=== PATIENT | female | born 1950 | race Caucasian/White ===

== ENCOUNTER 2021-05-09 06:50 | Day surgery (SDC) | payer OTHER ==
[~2021-05-09] VITALS: Ht 177.8 cm; Wt 100.0 kg
[~2021-05-09 06:50] MED LIST: ALBU4 PO; ALBU90OI61 INH; ATOR20; Augmentin 875-1 EACH PO; CYCL10; ESOM20; FLUSAL2505 INH; FLUT.05NI; FLUT1DIS2 INH; FLUT1DIS5 INH; MONT5TCH PO; MULVITA; OMEP20ER PO; PREG150 PO; PROM25 PO; PROM25S; PROM25S PR; PSEU120ER PO; Prednisone20 MG PO; SERT100; SERT25; SUMA25; Ultram50 MG PO; VENL75
--- NOTE | 2021-05-09 07:09 | NUR ---
05/09/21 0709 Kristy Hunter SCOPE BEING USED [id number] SERIAL #[id number]
--- NOTE | 2021-05-09 07:25 | NUR ---
Ambulatory in Day Surgery Patient states colon prep results clear. History, Chart, Medications and Allergies reviewed before start of procedure. Pre-Op teaching done. Pt verbalizes understanding. Patient States Post-Procedure ride home has been arranged.
--- NOTE | 2021-05-09 09:20 | NUR ---
Patient up to Ambulate independently. Gait steady. Discharge instructions reviewed with patient. Patient verbalizes understanding. Copy given to patient to take home. Patient States Post-Procedure ride home has been arranged. Discharged via wheelchair to private car for ride home.
== END 2021-05-09 09:20 | disposition home or self-care (01) ==
LOC: ORSCMMR 06:50 → ORD 08:00 → ORSCSDS 08:00 → ORSCMMR 08:00
PROVIDERS: Internal Medicine Gastroenterology
PROC: 0DBP8ZX Excision of Rectum, Via Natural or Artificial Opening Endoscopic, Diagnostic (ICD-10-PCS; principal; 2021-05-09 08:00)
PROC: 0DBK8ZX Excision of Ascending Colon, Via Natural or Artificial Opening Endoscopic, Diagnostic (ICD-10-PCS; principal; 2021-05-09 08:00)
DX: Z12.11 Encounter for screening for malignant neoplasm of colon (principal); D12.2 Benign neoplasm of ascending colon; K62.1 Rectal polyp; K57.30 Diverticulosis of large intestine without perforation or abscess without bleeding; Z86.010 Personal history of colon polyps
CPT/HCPCS: 88305; J2704; J7120

== ENCOUNTER → 2023-06-02 | Outpatient (CLI) | payer OTHER ==
[~2023-06-02] MED LIST changes: +ASPI81CH PO; +METO25 PO
== END | disposition home or self-care (01) ==
LOC: LAB SHORT 16:10 → LAB 16:10
DX: R82.90 Unspecified abnormal findings in urine (principal)
CPT/HCPCS: 87086

== ENCOUNTER → 2023-06-07 | Outpatient (CLI) | payer OTHER ==
[2023-06-07 13:48] LABS: BASOPHILS ABSOLUTE AUTO 0.03 K/mm3 (0.00-0.23); BASOPHILS PERCENT AUTO 1 % (0-2); EOSINOPHILS ABSOLUTE AUTO 0.07 K/mm3 (0.00-0.68); EOSINOPHILS PERCENT AUTO 2 % (0-6); Hematocrit 40.8 % (33.0-51.0); Hemoglobin 13.7 g/dL (11.5-16.0); IMMATURE GRAN ABSOLUTE AUTO 0.01 K/mm3 (0.00-0.10); IMMATURE GRAN PERCENT AUTO 0 % (0-1); LYMPHOCYTES ABSOLUTE AUTO 0.98 K/mm3 (0.84-5.20); LYMPHOCYTES PERCENT AUTO 23 % (21-46); MONOCYTES ABSOLUTE AUTO 0.34 K/mm3 (0.16-1.47); MONOCYTES PERCENT AUTO 8 % (4-13); Mean Corpuscular HGB 29.8 pg (26.0-34.0); Mean Corpuscular HGB Conc 33.6 g/dL (31.5-36.5); Mean Corpuscular Volume 89 fL (80-100); Mean Platelet Volume 10.1 fL (9.1-12.4); NEUTROPHILS ABSOLUTE AUTO 2.91 K/mm3 (1.96-9.15); NEUTROPHILS PERCENT AUTO 67 % (41-73); Platelet Count 223 K/mm3 (150-400); RDW Coefficient Variation 13.4 % (11.7-14.2); RDW Standard Deviation 43.4 fL (35.1-46.3); Red Blood Cell Count 4.59 M/mm3 (3.80-5.20); White Blood Cell Count 4.34 K/mm3 (4.00-11.30)
[2023-06-07 13:58] LABS: Albumin, Blood 3.6 g/dL (3.4-5.0); Albumin/Globulin Ratio 1.1 (0.8-1.8); Bilirubin, Total 0.7 mg/dL (0.1-1.0); Bun/Creatinine Ratio 9.1 (12.0-20.0); Calcium, Blood 9.3 mg/dL (8.5-10.1); Creatinine, Blood 0.77 mg/dL (0.40-1.00); Globulin, Blood 3.2 g/dL (2.2-4.0); Potassium, Blood 3.8 mmol/L (3.5-5.5); Total Protein, Blood 6.8 g/dL (6.4-8.2)
== END | disposition home or self-care (01) ==
LOC: LAB 13:41 → LAB SHORT 13:41
PROVIDERS: Physician Assistant
DX: K52.9 Noninfective gastroenteritis and colitis, unspecified (principal)
CPT/HCPCS: 80053; 85025

== ENCOUNTER → 2023-06-12 | Outpatient (CLI) | payer OTHER ==
[~2023-06-12] MED LIST changes: +DRAMAMINE25 M1; +MELATONIN10 M2 PO; +Metoprolol Succ25 MG; +ONDA4 PO; +WARF5 PO
[2023-06-12 15:12] LABS: Adenovirus F 40/41 Not Detected (NOT DETECT); Astrovirus Not Detected (NOT DETECT); Campylobacter Sp Not Detected (NOT DETECT); Cryptosporidium Not Detected (NOT DETECT); Cyclospora Cayetanensis Not Detected (NOT DETECT); E. Coli O157 Not Detected (NOT DETECT); Entamoeba Histolytica Not Detected (NOT DETECT); Enteroaggregative E. coli-EAEC Not Detected (NOT DETECT); Enteropathogenic E. coli-EPEC Not Detected (NOT DETECT); Enterotoxigenic E. coli-ETEC Not Detected (NOT DETECT); Giardia Lamblia Not Detected (NOT DETECT); Norovirus GI/GII Not Detected (NOT DETECT); Plesiomonas Shigelloides Not Detected (NOT DETECT); Rotavirus A Not Detected (NOT DETECT); Salmonella Sp Not Detected (NOT DETECT); Sapovirus Not Detected (NOT DETECT); Shiga Toxin-prod E. coli-STEC Not Detected (NOT DETECT); Shigella/Enteroin E. coli-EIEC Not Detected (NOT DETECT); Vibrio Cholerae Not Detected (NOT DETECT); Vibrio Sp Not Detected (NOT DETECT); Yersinia Enterocolitica Not Detected (NOT DETECT)
== END ==
LOC: LAB 10:40 → LAB SHORT 10:40
PROVIDERS: Physician Assistant
DX: K52.9 Noninfective gastroenteritis and colitis, unspecified (principal)
CPT/HCPCS: 87507

== ENCOUNTER → 2023-06-21 | Outpatient (CLI) | payer OTHER ==
[~2023-06-21] MED LIST changes: -DRAMAMINE25 M1; -MELATONIN10 M2 PO; -Metoprolol Succ25 MG; -ONDA4 PO; -WARF5 PO
[2023-06-21 16:59] LABS: BASOPHILS ABSOLUTE AUTO 0.04 K/mm3 (0.00-0.23); BASOPHILS PERCENT AUTO 1 % (0-2); EOSINOPHILS ABSOLUTE AUTO 0.08 K/mm3 (0.00-0.68); EOSINOPHILS PERCENT AUTO 2 % (0-6); Hematocrit 45.5 % (33.0-51.0); Hemoglobin 14.8 g/dL (11.5-16.0); IMMATURE GRAN ABSOLUTE AUTO 0.01 K/mm3 (0.00-0.10); IMMATURE GRAN PERCENT AUTO 0 % (0-1); LYMPHOCYTES ABSOLUTE AUTO 1.36 K/mm3 (0.84-5.20); LYMPHOCYTES PERCENT AUTO 29 % (21-46); MONOCYTES ABSOLUTE AUTO 0.34 K/mm3 (0.16-1.47); MONOCYTES PERCENT AUTO 7 % (4-13); Mean Corpuscular HGB 29.5 pg (26.0-34.0); Mean Corpuscular HGB Conc 32.5 g/dL (31.5-36.5); Mean Corpuscular Volume 91 fL (80-100); Mean Platelet Volume 10.4 fL (9.1-12.4); NEUTROPHILS ABSOLUTE AUTO 2.87 K/mm3 (1.96-9.15); NEUTROPHILS PERCENT AUTO 61 % (41-73); Platelet Count 274 K/mm3 (150-400); RDW Coefficient Variation 13.5 % (11.7-14.2); RDW Standard Deviation 44.8 fL (35.1-46.3); Red Blood Cell Count 5.02 M/mm3 (3.80-5.20)
[2023-06-21 17:06] LABS: Albumin, Blood 3.8 g/dL (3.4-5.0); Albumin/Globulin Ratio 1.1 (0.8-1.8); Bilirubin, Total 0.5 mg/dL (0.1-1.0); Calcium, Blood 10.4 mg/dL (8.5-10.1); Creatinine, Blood 0.89 mg/dL (0.40-1.00); Globulin, Blood 3.6 g/dL (2.2-4.0); Potassium, Blood 4.6 mmol/L (3.5-5.5); Total Protein, Blood 7.4 g/dL (6.4-8.2)
== END ==
LOC: LAB SHORT 16:05 → LAB 16:05
PROVIDERS: Physician Assistant
DX: I48.21 Permanent atrial fibrillation (principal); R11.0 Nausea
CPT/HCPCS: 80053; 82150; 83690; 85025

== ENCOUNTER → 2023-07-03 | Outpatient (CLI) | payer OTHER ==
[2023-07-05 18:10] LABS: PANCREATIC ELASTASE,FECAL 78 ug/g (>=100)
== END ==
LOC: LAB SHORT 09:45 → LAB 09:45
PROVIDERS: Physician Assistant Medical
DX: R14.0 Abdominal distension (gaseous) (principal)
CPT/HCPCS: 82653

== ENCOUNTER 2023-07-16 12:40 | Day surgery (SDC) | payer OTHER ==
[~2023-07-16] VITALS: Ht 177.8 cm; Wt 89.3 kg
[2023-07-16] MEDS ORDERED: Metoprolol Succ25 MG (13:17)
[2023-07-16] MEDS ORDERED: ONDA4 PO (13:18)
[2023-07-16] MEDS ORDERED: PROM25 PO (13:18)
[2023-07-16] MEDS ORDERED: DRAMAMINE25 M1 (13:18)
[2023-07-16] MEDS ORDERED: MELATONIN10 M2 PO (13:19)
[2023-07-16] MEDS ORDERED: WARF5 PO (13:28)
[2023-07-16 14:44] VITALS: BP 105/78
== END 2023-07-16 14:45 | disposition home or self-care (01) ==
LOC: ORSCSDS 12:40
PROVIDERS: Internal Medicine Gastroenterology
PROC: 0DB98ZX Excision of Duodenum, Via Natural or Artificial Opening Endoscopic, Diagnostic (ICD-10-PCS; principal; 2023-07-16 14:00)
PROC: 0DB68ZX Excision of Stomach, Via Natural or Artificial Opening Endoscopic, Diagnostic (ICD-10-PCS; principal; 2023-07-16 14:00)
DX: R63.4 Abnormal weight loss (principal); K31.7 Polyp of stomach and duodenum; K29.70 Gastritis, unspecified, without bleeding; R14.0 Abdominal distension (gaseous); K21.9 Gastro-esophageal reflux disease without esophagitis; K59.00 Constipation, unspecified; E78.5 Hyperlipidemia, unspecified; I48.91 Unspecified atrial fibrillation; I10 Essential (primary) hypertension; F32.A Depression, unspecified; J45.909 Unspecified asthma, uncomplicated; Z79.01 Long term (current) use of anticoagulants; Z79.899 Other long term (current) drug therapy
CPT/HCPCS: 88305; 88342; J2704; J7120

== ENCOUNTER 2024-07-13 06:37 | Day surgery (SDC) | payer OTHER ==
[~2024-07-13] VITALS: Ht 177.8 cm; Wt 94.9 kg
[~2024-07-13 06:37] MED LIST changes: +CREON DR 12,001 EACH PO; +DRAMAMINE25 M1; +GABA300 PO; +HYDR1TAB94 PO; +MELATONIN10 M2 PO; +Metoprolol Succ25 MG; +ONDA4 PO; +Robaxin750 MG PO; +WARF5 PO
[2024-07-13] MEDS ORDERED: propofoL 50 ML IV ONE (07:21)
[2024-07-13] MEDS ORDERED: Lactated Ringer's 1,000 ML IV ONE ×2 (07:21→07:43)
[2024-07-13 09:14] VITALS: BP 104/74
== END 2024-07-13 09:03 | disposition home or self-care (01) ==
LOC: ORSCSDS 06:37
PROVIDERS: Internal Medicine Gastroenterology
PROC: 0DBL8ZX Excision of Transverse Colon, Via Natural or Artificial Opening Endoscopic, Diagnostic (ICD-10-PCS; principal; 2024-07-13 08:00)
DX: Z12.11 Encounter for screening for malignant neoplasm of colon (principal); Z86.0100 Personal history of colon polyps, unspecified; K63.89 Other specified diseases of intestine; K63.5 Polyp of colon; K59.00 Constipation, unspecified; I48.91 Unspecified atrial fibrillation; Z79.01 Long term (current) use of anticoagulants; I10 Essential (primary) hypertension; K21.9 Gastro-esophageal reflux disease without esophagitis; E78.5 Hyperlipidemia, unspecified; Z79.899 Other long term (current) drug therapy
CPT/HCPCS: 88305; J2704; J7120

== ENCOUNTER → 2025-02-28 | Outpatient (CLI) | payer OTHER ==
[~2025-02-28] MED LIST changes: +Amoxicillin500 MG PO; +CLAR500 PO; +FAMO20 PO
[2025-02-28 11:16] LABS: BASOPHILS ABSOLUTE AUTO 0.05 K/mm3 (0.00-0.23); BASOPHILS PERCENT AUTO 1 % (0-2); EOSINOPHILS ABSOLUTE AUTO 0.04 K/mm3 (0.00-0.68); EOSINOPHILS PERCENT AUTO 1 % (0-6); Hematocrit 42.6 % (33.0-51.0); Hemoglobin 14.1 g/dL (11.5-16.0); IMMATURE GRAN ABSOLUTE AUTO 0.00 K/mm3 (0.00-0.10); IMMATURE GRAN PERCENT AUTO 0 % (0-1); LYMPHOCYTES ABSOLUTE AUTO 1.33 K/mm3 (0.84-5.20); LYMPHOCYTES PERCENT AUTO 35 % (21-46); MONOCYTES ABSOLUTE AUTO 0.34 K/mm3 (0.16-1.47); MONOCYTES PERCENT AUTO 9 % (4-13); Mean Corpuscular HGB Conc 33.1 g/dL (31.5-36.5); Mean Corpuscular Volume 90 fL (80-100); NEUTROPHILS ABSOLUTE AUTO 2.05 K/mm3 (1.96-9.15); NEUTROPHILS PERCENT AUTO 54 % (41-73); NRBC ABSOLUTE 0.00 K/mm3 (0.00-0.02); NRBC Auto 0.0 /100 WBC (0.0-0.2); Platelet Count 245 K/mm3 (150-400); RDW Coefficient Variation 13.5 % (11.7-14.2); RDW Standard Deviation 44.3 fL (35.1-46.3)
[2025-02-28 11:29] LABS: Alanine Aminotransfer (ALT/SGP 17.0 U/L (12-78); Albumin, Blood 3.6 g/dL (3.4-5.0); Albumin/Globulin Ratio 1.0 (0.8-1.8); Anion Gap 13.0 mmol/L (3-11); Aspartate Aminotrans (AST/SGOT 17.0 U/L (12-37); Bilirubin, Total 0.6 mg/dL (0.1-1.0); Blood Urea Nitrogen 4.0 mg/dL (8-24); CO2, Blood 28.0 mmol/L (21-32); Calcium, Blood 9.2 mg/dL (8.5-10.1); Chloride, Blood 102.0 mmol/L (98-108); Creatinine, Blood 0.82 mg/dL (0.40-1.00); Globulin, Blood 3.5 g/dL (2.2-4.0); Glucose, Blood 109.0 mg/dL (70-99); Potassium, Blood 4.1 mmol/L (3.5-5.5); Sodium, Blood 139.0 mmol/L (136-145); Total Protein, Blood 7.1 g/dL (6.4-8.2)
== END ==
LOC: LAB SHORT 11:12 → LAB 11:12
PROVIDERS: Physician Assistant
DX: R10.13 Epigastric pain (principal)
CPT/HCPCS: 80053; 83690; 84484; 85025

== ENCOUNTER 2025-03-02 08:09 | Emergency (ER) | payer OTHER ==
[~2025-03-02] VITALS: Ht 177.8 cm; Wt 95.2 kg
[~2025-03-02 08:09] MED LIST changes: -Amoxicillin500 MG PO; -CLAR500 PO
[2025-03-02] MEDS ORDERED: Atropine/Scopalam/Hyoscam/PB 5 ML UDC PO ONE (09:00)
[2025-03-02] MEDS ORDERED: Lidocaine 2% Viscous Soln 15 ML UDC PO ONE (09:00)
[2025-03-02] MEDS ORDERED: NS 1,000 ML IV SCH (09:00)
[2025-03-02 09:32] LABS: BASOPHILS ABSOLUTE AUTO 0.04 K/mm3 (0.00-0.23); BASOPHILS PERCENT AUTO 1 % (0-2); EOSINOPHILS ABSOLUTE AUTO 0.06 K/mm3 (0.00-0.68); EOSINOPHILS PERCENT AUTO 1 % (0-6); Hematocrit 44.2 % (33.0-51.0); Hemoglobin 14.6 g/dL (11.5-16.0); IMMATURE GRAN ABSOLUTE AUTO 0.01 K/mm3 (0.00-0.10); IMMATURE GRAN PERCENT AUTO 0 % (0-1); LYMPHOCYTES ABSOLUTE AUTO 1.25 K/mm3 (0.84-5.20); LYMPHOCYTES PERCENT AUTO 29 % (21-46); MONOCYTES ABSOLUTE AUTO 0.41 K/mm3 (0.16-1.47); MONOCYTES PERCENT AUTO 10 % (4-13); Mean Corpuscular HGB Conc 33.0 g/dL (31.5-36.5); Mean Corpuscular Volume 89 fL (80-100); NEUTROPHILS ABSOLUTE AUTO 2.49 K/mm3 (1.96-9.15); NEUTROPHILS PERCENT AUTO 59 % (41-73); NRBC ABSOLUTE 0.00 K/mm3 (0.00-0.02); NRBC Auto 0.0 /100 WBC (0.0-0.2); Platelet Count 265 K/mm3 (150-400); RDW Coefficient Variation 13.3 % (11.7-14.2); RDW Standard Deviation 43.7 fL (35.1-46.3)
[2025-03-02 09:48] LABS: Source, Urine Clean Catch
[2025-03-02 09:50] LABS: Alanine Aminotransfer (ALT/SGP 16.0 U/L (12-78); Albumin, Blood 3.7 g/dL (3.4-5.0); Albumin/Globulin Ratio 1.0 (0.8-1.8); Anion Gap 9.0 mmol/L (3-11); Aspartate Aminotrans (AST/SGOT 17.0 U/L (12-37); Bilirubin, Total 0.5 mg/dL (0.1-1.0); Blood Urea Nitrogen 4.0 mg/dL (8-24); CO2, Blood 27.0 mmol/L (21-32); Calcium, Blood 9.1 mg/dL (8.5-10.1); Chloride, Blood 107.0 mmol/L (98-108); Creatinine, Blood 0.76 mg/dL (0.40-1.00); Globulin, Blood 3.6 g/dL (2.2-4.0); Glucose, Blood 100.0 mg/dL (70-99); Potassium, Blood 3.9 mmol/L (3.5-5.5); Sodium, Blood 139.0 mmol/L (136-145); Total Protein, Blood 7.3 g/dL (6.4-8.2)
[2025-03-02 09:51] LABS: Bilirubin, Urine Neg (Neg); Color, Urine Yellow (P-Yellow); Glucose Qualitative, Urine Neg (Neg); Ketones, Urine Neg (Neg); Leukocyte Esterase, Urine 2+ (Neg); Protein, Urine Neg (Neg); Specific Gravity, Urine 1.015 (1.003-1.022); Urobilinogen, Urine NORM (Normal)
[2025-03-02 09:58] LABS: Red Blood Cells, Urine Not Seen /hpf (0-2); White Blood Cells, Urine 0-2 /hpf (0-5)
[2025-03-02 10:41] VITALS: BP 116/79
[2025-03-02] MEDS ORDERED: Ondansetron HCl 2 MG / ML 2ML Vial IV ONE (11:20)
[2025-03-02] MEDS ORDERED: PROM25 PO (13:13)
[2025-03-02] MEDS ORDERED: CLAR500 PO (13:13)
[2025-03-02] MEDS ORDERED: Amoxicillin500 MG PO (13:13)
== END 2025-03-02 13:30 | disposition home or self-care (01) ==
LOC: ER 08:09
PROVIDERS: Physician Assistant
DX: R10.13 Epigastric pain (principal); J44.9 Chronic obstructive pulmonary disease, unspecified; K21.9 Gastro-esophageal reflux disease without esophagitis; E78.5 Hyperlipidemia, unspecified; Z86.19 Personal history of other infectious and parasitic diseases; Z79.01 Long term (current) use of anticoagulants; Z79.899 Other long term (current) drug therapy; Z59.89 Other problems related to housing and economic circumstances
CPT/HCPCS: 74177; 76705; 80053; 81001; 83690; 85025; 87086; 96361; 96374-59; 99284-25; A9270; J2405; J7030; Q9967

== ENCOUNTER 2025-03-30 12:53 | Day surgery (SDC) | payer OTHER ==
[~2025-03-30] VITALS: Ht 177.8 cm; Wt 93.7 kg
[~2025-03-30 12:53] MED LIST changes: +Amoxicillin500 MG PO; +CLAR500 PO; +XARELTO20 MG PO
[2025-03-30] MEDS ORDERED: PREGABALIN150 MG (13:27)
[2025-03-30] MEDS ORDERED: CREON DR 36,001 EACH (13:29)
--- NOTE | 2025-03-30 14:06 | NUR ---
03/30/25 1406 VICKEY ZAMBRANO MD NOTIFIED FACE TO FACE OF EKG WITH AFIB RVR IN FEBRUARY AND MONIOR RATES OF 110-130, WITH MANUAL PULSE COUNTS OF 60-100, BY THIS RN
[2025-03-30 15:12] VITALS: BP 123/61
== END 2025-03-30 14:58 | disposition home or self-care (01) ==
LOC: ORSCSDS 12:53
PROVIDERS: Specialist
PROC: 0DB68ZX Excision of Stomach, Via Natural or Artificial Opening Endoscopic, Diagnostic (ICD-10-PCS; principal; 2025-03-30 14:15)
PROC: 0DB98ZX Excision of Duodenum, Via Natural or Artificial Opening Endoscopic, Diagnostic (ICD-10-PCS; principal; 2025-03-30 14:15)
DX: R10.13 Epigastric pain (principal); K44.9 Diaphragmatic hernia without obstruction or gangrene; R11.0 Nausea; E78.5 Hyperlipidemia, unspecified; I48.91 Unspecified atrial fibrillation; J45.909 Unspecified asthma, uncomplicated; F32.A Depression, unspecified; I10 Essential (primary) hypertension; Z79.01 Long term (current) use of anticoagulants; Z79.899 Other long term (current) drug therapy
CPT/HCPCS: 88305; 88342; J2003; J2704; J7120

== ENCOUNTER 2025-04-12 16:42 | Emergency (ER) | payer OTHER ==
[~2025-04-12] VITALS: Ht 177.8 cm; Wt 94.3 kg
[~2025-04-12 16:42] MED LIST changes: +CREON DR 36,001 EACH; +PREGABALIN150 MG
[2025-04-12 19:00] VITALS: BP 133/90
== END 2025-04-12 19:03 | disposition home or self-care (01) ==
LOC: ER 16:42
DX: S00.03XA Contusion of scalp, initial encounter (principal); M25.551 Pain in right hip; J44.9 Chronic obstructive pulmonary disease, unspecified; K21.9 Gastro-esophageal reflux disease without esophagitis; E78.5 Hyperlipidemia, unspecified; Z88.1 Allergy status to other antibiotic agents; Z88.5 Allergy status to narcotic agent; Z88.8 Allergy status to other drugs, medicaments and biological substances; Z79.01 Long term (current) use of anticoagulants; Z79.899 Other long term (current) drug therapy; W10.9XXA Fall (on) (from) unspecified stairs and steps, initial encounter
CPT/HCPCS: 70450; 73502

== ENCOUNTER 2025-07-03 05:58 | Observation (INO) | payer OTHER ==
[~2025-07-03] VITALS: Ht 177.8 cm; Wt 97.0 kg
[2025-07-03] MEDS ORDERED: Ondansetron HCl 2 MG / ML 2ML Vial IV ONE ×2 (07:20→09:15)
[2025-07-03] MEDS ORDERED: HYDROmorphone HCl/Pf 1MG SYR IV ONE (07:35)
[2025-07-03 07:51] LABS: Source, Urine Clean Catch
[2025-07-03 08:02] LABS: Bilirubin, Urine Neg (Neg); Glucose Qualitative, Urine Neg (Neg); Ketones, Urine Neg (Neg); Leukocyte Esterase, Urine Neg (Neg); Protein, Urine Neg (Neg); Specific Gravity, Urine 1.005 (1.003-1.022); Urobilinogen, Urine NORM (Normal)
[2025-07-03] MEDS ORDERED: PREG300 PO (08:04)
[2025-07-03 08:14] LABS: Color, Urine Pale Yellow (P-Yellow)
[2025-07-03 08:23] LABS: BASOPHILS ABSOLUTE AUTO 0.04 K/mm3 (0.00-0.23); BASOPHILS PERCENT AUTO 1 % (0-2); EOSINOPHILS ABSOLUTE AUTO 0.07 K/mm3 (0.00-0.68); EOSINOPHILS PERCENT AUTO 1 % (0-6); Hematocrit 42.2 % (33.0-51.0); Hemoglobin 14.0 g/dL (11.5-16.0); IMMATURE GRAN ABSOLUTE AUTO 0.01 K/mm3 (0.00-0.10); IMMATURE GRAN PERCENT AUTO 0 % (0-1); LYMPHOCYTES ABSOLUTE AUTO 1.04 K/mm3 (0.84-5.20); LYMPHOCYTES PERCENT AUTO 17 % (21-46); MONOCYTES ABSOLUTE AUTO 0.38 K/mm3 (0.16-1.47); MONOCYTES PERCENT AUTO 6 % (4-13); Mean Corpuscular HGB Conc 33.2 g/dL (31.5-36.5); Mean Corpuscular Volume 91 fL (80-100); NEUTROPHILS ABSOLUTE AUTO 4.53 K/mm3 (1.96-9.15); NEUTROPHILS PERCENT AUTO 75 % (41-73); NRBC ABSOLUTE 0.00 K/mm3 (0.00-0.02); NRBC Auto 0.0 /100 WBC (0.0-0.2); Platelet Count 226 K/mm3 (150-400); RDW Coefficient Variation 13.1 % (11.7-14.2); RDW Standard Deviation 43.5 fL (35.1-46.3)
[2025-07-03 08:39] LABS: Alanine Aminotransfer (ALT/SGP 16.0 U/L (12-78); Albumin, Blood 3.5 g/dL (3.4-5.0); Albumin/Globulin Ratio 1.0 (0.8-1.8); Anion Gap 10.0 mmol/L (3-11); Aspartate Aminotrans (AST/SGOT 17.0 U/L (12-37); Bilirubin, Total 0.6 mg/dL (0.1-1.0); Blood Urea Nitrogen 9.0 mg/dL (8-24); CO2, Blood 26.0 mmol/L (21-32); Calcium, Blood 9.3 mg/dL (8.5-10.1); Chloride, Blood 105.0 mmol/L (98-108); Creatinine, Blood 0.66 mg/dL (0.40-1.00); Globulin, Blood 3.6 g/dL (2.2-4.0); Glucose, Blood 115.0 mg/dL (70-99); Potassium, Blood 3.7 mmol/L (3.5-5.5); Sodium, Blood 137.0 mmol/L (136-145); Total Protein, Blood 7.1 g/dL (6.4-8.2)
[2025-07-03 08:40] LABS: Prothrombin Time Results 22.2 Sec (9.7-11.5)
[2025-07-03] MEDS ORDERED: FLU VACC TS2025(65UP)/MF59C/PF 45 MCG/0.5 ML SYRINGE IM SCH (10:40)
[2025-07-03 11:49] VITALS: BP 110/91
[2025-07-03] MEDS ORDERED: Ondansetron 4 MG SoluTab MM PRN (13:15)
[2025-07-03] MEDS ORDERED: Amylase/Lipase/Protease DR Cap 12,000 PO PRN (13:35)
[2025-07-03] MEDS ORDERED: Polyethylene Glycol 3350 17 gm PO PRN (14:35)
[2025-07-03] MEDS ORDERED: Amylase/Lipase/Protease DR Cap 12,000 PO SCH (17:30)
--- NOTE | 2025-07-03 18:11 | NUR ---
ADMISSION/SHIFT SUMMARY: PATIENT ARRIVES TO ROOM AT 1144 VIA GURNEY FROM ER FOR DX'S OF INTRACTABLE PAIN SECONDARY TO SACRAL FX. PATIENT TRANSFERRED TO BED c 1 ASSIST. PATIENT ADMISSION, MEDRIC AND ASSESSMENT COMPLETED. PATIENT WAS SEEN BY PT TODAY FOR EVAL AND PARTICIPATED, RECOMMENDED HH. PATIENT MEDICATED FOR R SIDE LOWER BACK PAIN PER EMAR c GOOD EFFECT. PATIENT CONTINENT OF BLADDER AND USES BSC c SBA/FWW. VITAL SIGNS REVIEWED. PATIENT A/OX4, CALM, PLEASANT, COOPERATIVE c CARE, CALLS APPROPRIATELY AND MAKE NEEDS KNOWN. BED IN LOWEST POSITION. CALL LIGHT IN REACH.
[2025-07-03 21:14] VITALS: BP 102/55
[2025-07-04 03:47] VITALS: BP 89/51
--- NOTE | 2025-07-04 05:51 | NUR ---
Shift Summary- - Events: The patient rested comfortably. BP was mildly low, potentially due to an increased pain medication dosage administered to facilitate sleep. - Orientation: A/Ox4. - Ambulation: Used FWW with a gait belt (uses a cane at baseline). - Medication: Taken whole with water. - Toileting: Continent x2.
[2025-07-04 05:56] VITALS: BP 104/53
[2025-07-04 06:21] LABS: Prothrombin Time Results 20.3 Sec (9.7-11.5)
[2025-07-04] MEDS ORDERED: Enoxaparin 40 MG/0.4 ML SYR SC SCH (09:00)
[2025-07-04] MEDS ORDERED: ACET500 PO (11:50)
[2025-07-04] MEDS ORDERED: ONDA4ODT MM (11:51)
[2025-07-04] MEDS ORDERED: Cyclobenzaprine5 MG PO (11:51)
[2025-07-04] MEDS ORDERED: OXAYDO5 M1 PO (11:53)
[2025-07-04] MEDS ORDERED: MIRALAX17 GM PO (11:54)
[2025-07-04 14:53] VITALS: BP 106/63
--- NOTE | 2025-07-04 16:20 | NUR ---
SHIFT/DC SUMMARY: PT ALERT AND ORIENTED X4, PAIN MANAGEMENT GOAL MET- OXYCODONE 10MG AND TYLENOL 1000 MG GIVEN PRIOR TO DC HOME. PT HAS BEEN ABLE TO EXIT BED AND AMBULATE TO RESTROOM-STANDBY ASSIST WITH FWW. HARD SCRIPT FOR OXYCODONE GIVEN TO PATIENT AND ALL OTHER PRESCRIPTIONS FAXED TO [facility]. DC INSTRUCTIONS REVIEWED WITH PATIENT AND DAUGHTER PER EVANS ALBRIGHT. 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 ALL BELONGINGS WITH PATIENT.
--- NOTE | 2025-07-05 16:29 | NUR ---
CALLED PT FOR HOME MEDICATION TO BE PICKED UP. [facility] HOME MEDICATION. PT STATES WILL SEND DAUGHTER TO [facility] MEDICATION SOMETIME TODAY OR [facility].
== END 2025-07-04 16:30 | disposition home health service (06) ==
LOC: ER 05:58 → MEDS 05:59 → ER 11:38 → MEDS 11:58
PROVIDERS: Emergency Medicine; ADMIT Family Medicine
DX: M54.40 Lumbago with sciatica, unspecified side (principal); S32.10XA Unspecified fracture of sacrum, initial encounter for closed fracture; J44.9 Chronic obstructive pulmonary disease, unspecified; E78.5 Hyperlipidemia, unspecified; F32.A Depression, unspecified; G43.909 Migraine, unspecified, not intractable, without status migrainosus; I48.91 Unspecified atrial fibrillation; K21.9 Gastro-esophageal reflux disease without esophagitis; M81.0 Age-related osteoporosis without current pathological fracture; X58.XXXA Exposure to other specified factors, initial encounter; Z79.01 Long term (current) use of anticoagulants; Z79.899 Other long term (current) drug therapy; Z86.0101 Personal history of adenomatous and serrated colon polyps; Z87.442 Personal history of urinary calculi; Z88.1 Allergy status to other antibiotic agents; Z88.6 Allergy status to analgesic agent; Z88.8 Allergy status to other drugs, medicaments and biological substances; Z90.49 Acquired absence of other specified parts of digestive tract; Z98.890 Other specified postprocedural states
CPT/HCPCS: 36415; 74176; 80053; 81003; 85025; 85610; 96374; 96375; 96376; 97110; 97161; 97165; 97530; 97535; 99284-25; A9270; G0378; J1171; J2405